=== PATIENT | male | born 1975 | race Caucasian/White ===

== ENCOUNTER → 2020-02-07 11:15 | Outpatient (CLI) | payer OTHER, SELFPAY ==
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
== END ==
PROVIDERS: PCP Family Medicine; Referring Provider Physical Medicine & Rehabilitation; Visit Provider Physical Medicine & Rehabilitation
DX: R06.02 Shortness of breath (principal); S22.41XA Multiple fractures of ribs, right side, initial encounter for closed fracture; S20.219A Contusion of unspecified front wall of thorax, initial encounter; M54.6 Pain in thoracic spine; V17.0XXA Pedal cycle driver injured in collision with fixed or stationary object in nontraffic accident, initial encounter
CPT/HCPCS: 71110; 72072

== ENCOUNTER → 2021-02-01 09:35 | Outpatient (CLI) | payer OTHER, SELFPAY ==
[2021-02-01 10:25] LABS: BUN Creatinine Ratio 18.3 (6-22); Blood Urea Nitrogen 17 mg/dL (9-20); Calcium 9.6 mg/dL (8.4-10.2); Carbon Dioxide 28 mmol/L (22-32); Chloride 102 mmol/L (98-107); Cholesterol 137 mg/dL (140-199); Estimated Glomerular Filt Rate > 60.0 mL/min (>60); Glucose 113 mg/dL (70-100); HDL Cholesterol 62 mg/dL (40-60); HEMOLYSIS 16 (0-50); LDL Cholesterol Calculated 61 mg/dL (<100); Potassium 4.6 mmol/L (3.4-5.1); Sodium 139 mmol/L (137-145); Triglycerides 68 mg/dL (35-150)
== END ==
PROVIDERS: PCP Family Medicine; Referring Provider Family Medicine; Visit Provider Family Medicine
DX: Z13.1 Encounter for screening for diabetes mellitus (principal); Z13.220 Encounter for screening for lipoid disorders
CPT/HCPCS: 36415; 80048; 80061

== ENCOUNTER → 2022-10-20 08:56 | Outpatient (CLI) | payer OTHER, SELFPAY ==
[2022-10-20 09:38] LABS: Add Manual Diff / Slide Review NO; Basophils Absolute Auto 0 /uL (0-100); Basophils Percent Auto 0.5 % (0-2); Eosinophils Absolute Auto 100 /uL (0-450); Eosinophils Percent Auto 1.7 % (2-4); Hematocrit 46.2 % (41-53); Hemoglobin 15.6 g/dL (13.5-17.5); Lymphocytes Absolute Auto 1800 /uL (1100-4500); Lymphocytes Percent Auto 35.4 % (25-40); Mean Corpuscular HGB Conc 33.7 % (30-36); Mean Corpuscular Volume 88.9 fL (80-100); Monocytes Absolute Auto 300 /uL (0-900); Monocytes Percent Auto 6.3 % (3-14); Neutrophils Absolute Auto 2800 /uL (1500-7000); Neutrophils Percent Auto 56.1 % (50-75); Platelet Count 199 X10^3/uL (150-400); Red Cell Distribution Width 13.6 % (11.6-14.8)
[2022-10-20 09:55] LABS: Alanine Aminotransferase 23 IU/L (<50); Albumin 4.7 g/dL (3.5-5.0); Alkaline Phosphatase 33 U/L (38-126); Aspartate Aminotransferase 26 IU/L (17-59); BUN Creatinine Ratio 22.1 (6-22); Bilirubin Total 0.8 mg/dL (0.2-1.3); Blood Urea Nitrogen 21 mg/dL (9-20); Calcium 9.2 mg/dL (8.4-10.2); Carbon Dioxide 29 mmol/L (22-32); Chloride 100 mmol/L (98-107); Cholesterol 117 mg/dL (140-199); Estimated Glomerular Filt Rate > 60 mL/min (>60); Globulin 2.4 g/dL (1.7-4.1); Glucose 104 mg/dL (70-100); HDL Cholesterol 58 mg/dL (40-60); HEMOLYSIS < 15 (0-50); LDL Cholesterol Calculated 50 mg/dL (<100); Potassium 4.8 mmol/L (3.4-5.1); Sodium 140 mmol/L (137-145); Total Protein 7.1 g/dL (6.3-8.2); Triglycerides 46 mg/dL (35-150)
[2022-10-20 10:25] LABS: TSH w/ Reflex to FT4 1.41 uIU/mL (0.47-4.68)
== END ==
PROVIDERS: PCP Family Medicine; Referring Provider Family Medicine; Visit Provider Family Medicine
DX: Z13.1 Encounter for screening for diabetes mellitus (principal); Z13.6 Encounter for screening for cardiovascular disorders
CPT/HCPCS: 36415; 80053; 80061; 84443; 85025

== ENCOUNTER 2023-03-09 06:50 | Day surgery (SDC) | payer OTHER, SELFPAY ==
[2023-03-09] VITALS (7 sets, daily range): BP systolic 71–113; BP diastolic 42–66; PULSE 57–841; RESP 12–16; TEMP 35.8–36.2; O2SAT 97–99; BMI 23.0
[2023-03-09] MEDS: LACTATED RINGERS 1,000 ML 42 ML IV (07:26)
--- NOTE | 2023-03-09 07:52 | PM.HP.1 ---
History of Present Illness History of Present Illness Date Patient Seen: 03/09/23 Time Patient Seen: 07:52 Chief complaint: Colonoscopy Narrative: 47 yo presents today for his first screening colonoscopy. His father did have colon cancer at age of 70. He denies any concerning symptoms such as bleeding or changes in bowel habits. He otherwise has no questions or concerns [facility] Family History (Updated 12/04/13 @ 00:00 by Yuriy Murphy MD) Father Heart disease Mother Skin cancer Social History household members: spouse Smoking Status: Former smoker Meds Home Medications and Allergies Home Medications Medication Instructions Recorded Confirmed Type No Known Home Medications 10/23/22 10/23/22 History Allergies Allergy/AdvReac Type Severity Reaction Status Date / Time Iodine and Iodide Containing Allergy Mild unknown, Verified 03/09/23 07:05 Produc childhood [IODINE AND IODIDE CONTAINING PRODUC] Exam Vital Signs (past 8 hours): - 03/09/23 07:13 Temperature 96.5 F L Pulse Rate 57 L Respiratory Rate 16 Blood Pressure 113/66 Pulse Oximetry 98 Oxygen Delivery Method Room Air Oxygen Delivery Method Room Air Const General: cooperative, healthy appearing and comfortable HENMA Head: normal to inspection and normocephalic Eyes General: appearance normal, both eyes and all related structures Resp Effort & Inspection: normal respiratory effort and able to speak in complete sentences GI Palpation: soft and No tender Assessment & Plan Assessment and plan (1) Family history of colon cancer in father: Status: Acute (2) Screening for colon cancer: Status: Acute Assessment & Plan narrative: Presents today for screening colonoscopy I discussed the risks benefits and alternatives including but not limited to perforation of the colon and an incomplete exam he fully understands these risks and would like to proceed.
--- NOTE | 2023-03-09 08:41 | PM.OP.COLON ---
Operative Date/Time/Diagnoses Date of procedure: 03/09/23 Time of procedure: 08:41 Pre-op diagnosis: Family history of colon cancer, colon cancer screening Post-op diagnosis: same Procedure & Clinicians Study performed: Colonoscopy Same procedure as scheduled: Yes Indications: Family history of colon cancer in father, screening for colon cancer Surgeon: Yuko Alford Procedure Notes Procedure in detail: Patient was taken to the endoscopy suite and placed in a left lateral decubitus position. A time-out was performed. With the help of anesthesiology provider, conscious sedation was induced and monitored throughout the case. A digital rectal exam was performed and there were no masses or strictures. The colonoscope was introduced into the anal canal and advanced through to the cecum. There were 2 separate episodes of bradycardia during the exam which resolved with intervention. A few scattered diverticula in the sigmoid colon were seen and photographed. A photograph of the appendiceal orifice was obtained. The bowel prep was excellent [place] bowel prep score of 3. The scope was then withdrawn for a total of 8 minutes and no polyps were seen. The scope was then retroflexed and a photograph of normal internal hemorrhoidal piles was obtained. Findings: divertiulosis Specimen(s): none sent Complications: none Post-procedure Recommendations: Colonoscopy in 5 years Plan for aftercare: With family history of colon cancer 5 year follow-up is recommended. When I see diverticula I always recommend fiber supplementation. I discussed these recommendations with Diana his , and placed them in the discharge paperwork as well. I encouraged every patient to call the office of the [facility] with any questions or concerns. Disposition: PACU
--- NOTE | 2023-03-09 09:17 | PM.HP.1 ---
History of Present Illness History of Present Illness Date Patient Seen: 03/09/23 Time Patient Seen: 09:17 Chief complaint: Colonoscopy Narrative: 47 yo presents today for his first screening colonoscopy. His father did have colon cancer at age of 70. He denies any concerning symptoms such as bleeding or changes in bowel habits. He otherwise has no questions or concerns [facility] Family History (Updated 12/04/13 @ 00:00 by Yuriy Murphy MD) Father Heart disease Mother Skin cancer Social History household members: spouse Smoking Status: Former smoker Meds Home Medications and Allergies Home Medications Medication Instructions Recorded Confirmed Type No Known Home Medications 10/23/22 10/23/22 History Allergies Allergy/AdvReac Type Severity Reaction Status Date / Time Iodine and Iodide Containing Allergy Mild unknown, Verified 03/09/23 07:05 Produc childhood [IODINE AND IODIDE CONTAINING PRODUC] Exam Vital Signs (past 8 hours): - 03/09/23 07:13 03/09/23 08:29 03/09/23 08:33 Temperature 96.5 F L 97.2 F L Pulse Rate 57 L 841 H 82 Respiratory Rate 16 14 15 Blood Pressure 113/66 90/54 L 85/60 L Pulse Oximetry 98 97 98 Oxygen Delivery Method Room Air Room Air 03/09/23 08:38 03/09/23 08:44 03/09/23 08:48 Temperature Pulse Rate 88 84 69 Respiratory Rate 14 12 12 Blood Pressure 71/42 L 87/56 L 88/59 L Pulse Oximetry 97 98 99 Oxygen Delivery Method Room Air Room Air Room Air 03/09/23 08:55 Temperature 97.2 F L Pulse Rate 66 Respiratory Rate 15 Blood Pressure 84/54 L Pulse Oximetry 98 Oxygen Delivery Method Room Air Oxygen Delivery Method Room Air
== END 2023-03-09 09:05 | disposition home or self-care (01) ==
PROVIDERS: PCP Family Medicine; Referring Provider Surgery; Visit Provider Surgery
PROC: 0DJD8ZZ Inspection of Lower Intestinal Tract, Via Natural or Artificial Opening Endoscopic (ICD-10-PCS; CPT 45378; principal; 2023-03-09 07:45)
DX: Z12.11 Encounter for screening for malignant neoplasm of colon (principal); Z80.0 Family history of malignant neoplasm of digestive organs; K57.30 Diverticulosis of large intestine without perforation or abscess without bleeding
CPT/HCPCS: 45378

== ENCOUNTER → 2023-12-07 10:12 | Outpatient (CLI) | payer OTHER, SELFPAY ==
[2023-12-07 11:08] LABS: Add Manual Diff / Slide Review NO; Basophils Absolute Auto 0 /uL (0-100); Basophils Percent Auto 0.5 % (0-2); Eosinophils Absolute Auto 0 /uL (0-450); Eosinophils Percent Auto 0.8 % (2-4); Hematocrit 44.1 % (41-53); Lymphocytes Absolute Auto 1400 /uL (1100-4500); Lymphocytes Percent Auto 27.2 % (25-40); Mean Corpuscular HGB Conc 34.1 % (30-36); Mean Corpuscular Hemoglobin 30.8 PG (26-34); Mean Corpuscular Volume 90.4 fL (80-100); Monocytes Absolute Auto 300 /uL (0-900); Monocytes Percent Auto 6.3 % (3-14); Neutrophils Absolute Auto 3400 /uL (1500-7000); Neutrophils Percent Auto 65.2 % (50-75); Platelet Count 206 X10^3/uL (150-400); Red Blood Cell Count 4.88 X10^6/uL (4.5-5.9); Red Cell Distribution Width 12.8 % (11.6-14.8); White Blood Cell Count 5.2 X10^3/uL (4.5-11.0)
[2023-12-07 11:10] LABS: Hemoglobin A1C% w Est Avg Glu 5.3 % (4.0-6.0)
[2023-12-07 11:30] LABS: Alanine Aminotransferase 18 IU/L (<50); Albumin 4.3 g/dL (3.5-5.0); Albumin Globulin Ratio 1.6 (1.0-2.8); Alkaline Phosphatase 27 U/L (38-126); Aspartate Aminotransferase 28 IU/L (17-59); BUN Creatinine Ratio 19.1 (6-22); Bilirubin Total 0.7 mg/dL (0.2-1.3); Blood Urea Nitrogen 17 mg/dL (9-20); Calcium 9.2 mg/dL (8.4-10.2); Carbon Dioxide 29 mmol/L (22-32); Chloride 108 mmol/L (98-107); Cholesterol 101 mg/dL (140-199); Estimated Glomerular Filt Rate > 60 mL/min (>60); Globulin 2.7 g/dL (1.7-4.1); Glucose 94 mg/dL (70-100); HDL Cholesterol 56 mg/dL (40-60); HEMOLYSIS < 15 (0-50); LDL Cholesterol Calculated 34 mg/dL (<100); Potassium 4.2 mmol/L (3.4-5.1); Sodium 140 mmol/L (137-145); Triglycerides 57 mg/dL (35-150)
== END ==
PROVIDERS: PCP Family Medicine; Referring Provider Family Medicine; Visit Provider Family Medicine
DX: R73.9 Hyperglycemia, unspecified (principal); R42 Dizziness and giddiness; H83.92 Unspecified disease of left inner ear
CPT/HCPCS: 36415; 80053; 80061; 83036; 85025

== ENCOUNTER → 2024-03-26 07:56 | Outpatient (CLI) | payer OTHER, SELFPAY ==
--- NOTE | 2024-03-26 07:58 | DI.ECHO.S_ITS ---
[facility] : : [address] : : [place] : : [id number] : : Phone: [phone] Echocardiogram Report + + :Name: AURELIANO SOLARES Study Date: 03/26/2024 Height: 72 in : :[facility] ReadingLocation: Weight: 180 lb : : Gender: Male BSA: 2.0 m2 : :: 1975 Age: 49 yrs BP: 123/70 mmHg: :Reason For Study: CARDIAC MURMUR : :Ordering Physician: BRENNEN QUINTANILLA Performed By: Claire Garcia : :Referring: BRENNEN QUINTANILLA : + + Interpretation Summary 1. LV contractility is borderline. EF of 50-55% without WMA. No LVH. Normal diastolic function. 2. RV contractility is normal. 3. All chamber sizes are normal. 4. Mild PI. 5. No obvious intracardiac shunts. 6. No obvious intracardiac masses/thrombi. 7. No hemodynamically significant pericardial effusion. Conclusion: Low normal LV systolic function with mild pulmonic insufficiency. Procedure: A two-dimensional transthoracic echocardiogram with color flow and Doppler was performed. The study quality was technically adequate. There is no prior echocardiogram noted for this patient. The patient was in sinus rhythm with heart rates between 60-73 bpm during the exam. Left Ventricle: The left ventricle is normal in size and wall thickness. The ejection fraction is estimated to be 50-55%. Right Ventricle: The right ventricle is normal in size and function. Atria: The left atrial size is normal. Right atrial size is normal. There is no Doppler evidence for an interatrial shunt. Mitral Valve: The mitral valve is normal in structure and function. There is trace mitral regurgitation. Aortic Valve: The aortic valve is trileaflet. The aortic valve opens well. There is no aortic valve stenosis. There is trace aortic regurgitation. Tricuspid Valve: The tricuspid valve is normal in structure and function. There is mild tricuspid regurgitation. Pulmonic Valve: The pulmonic valve leaflets are thin and pliable; valve motion is normal. There is mild pulmonic regurgitation. Great Vessels: The aortic root is normal size. The dimensions of the ascending aorta are normal. The IVC is of normal diameter and collapses greater than 50% with a sniff. This suggests a low right atrial pressure of 3 mm Hg. Pericardium/ Pleura There is no pericardial effusion. There is no pleural effusion. MMode/2D Measurements & Calculations LVIDd: 5.1 cm LVOT diam: 2.1 cm LVIDs: 3.3 cm Ao root diam: 2.9 cm FS: 34.2 % asc Aorta Diam: 3.0 cm IVSd: 0.76 cm Ao Arch Diam (Prox Trans): 2.5 cm LVPWd: 0.62 cm LV kuhn. diameter/BSA (cm/m^2): 2.5 LV sys. diameter/BSA (cm/m^2): 1.6 LA A2 area: 15.4 cm2 RA long axis: 3.9 cm LA A4 area: 12.7 cm2 RA area: 11.2 cm2 LA length (vol): 4.4 cm RA vol: 27.4 ml LA vol: 37.8 ml RA : 13.4 ml/m2 LA vol index: 18.6 ml/m2 IVC diam: 1.3 cm RVD1 (basal): 3.2 cm RVD2 (mid): 2.8 cm TAPSE: 2.0 cm Doppler Measurements & Calculations Ao V2 max: 110.6 cm/sec LVOT Max Esdras: 92.9 cm/sec Ao V2 mean: 80.0 cm/sec LV V1 max P.5 mmHg Ao max P.9 mmHg LV V1 VTI: 19.4 cm Ao mean P.8 mmHg VINCENZO(I,D): 2.9 cm2 Ao V2 VTI: 23.8 cm VINCENZO(V,D): 3.0 cm2 sev ratio: 0.82 VINCENZO indexed to BSA (cm^2/m^2): 1.4 MV E max esdras: 65.8 cm/sec PA V2 max: 105.1 cm/sec MV A max esdras: 70.7 cm/sec PA V2 mean: 78.5 cm/sec MV E/A: 0.93 PA mean P.7 mmHg Med Peak E' Esdras: 12.2 cm/sec PA pr(Accel): 37.9 mmHg E/E' med: 5.4 Lat Peak E' Esdras: 14.7 cm/sec E/E' lat: 4.5 E/e' average: 4.9 MV dec time: 0.22 sec SV(LVOT): 69.0 ml Reading Physician:
== END ==
LOC: ECHO 07:57
PROVIDERS: PCP Family Medicine; Referring Provider Internal Medicine; Visit Provider Internal Medicine
DX: I07.1 Rheumatic tricuspid insufficiency (principal); R01.1 Cardiac murmur, unspecified
CPT/HCPCS: 93306